=== PATIENT | female | born 2000 | race Caucasian/White ===

== ENCOUNTER 2022-12-11 18:45 | Emergency (ER) | payer MEDICAID, OTHER ==
[2022-12-11] MEDS ORDERED: Lidocaine 1% 10 ML MDV INJECT ONE (19:30)
== END 2022-12-11 22:31 | disposition home or self-care (01) ==
LOC: JD.ED 18:45
DX: S51.812A Laceration without foreign body of left forearm, initial encounter (principal); F32.A Depression, unspecified; J45.909 Unspecified asthma, uncomplicated; Z86.16 Personal history of COVID-19; Z88.0 Allergy status to penicillin; X78.9XXA Intentional self-harm by unspecified sharp object, initial encounter
CPT/HCPCS: 12002; 36415; 80053; 80306; 80307; 84443; 85025; 99283; J3490

== ENCOUNTER 2022-12-24 13:32 | Emergency (ER) | payer MEDICAID, OTHER | END 2022-12-24 14:01 | disposition home or self-care (01) | LOC: JD.ED 13:32 | DX: S51.812D Laceration without foreign body of left forearm, subsequent encounter (principal); Z48.02 Encounter for removal of sutures; W18.30XD Fall on same level, unspecified, subsequent encounter | CPT/HCPCS: 99281 ==